=== PATIENT | female | born 1970 | race Two or more races ===

== ENCOUNTER 2024-09-04 08:34 | Outpatient (CLI) | payer OTHER | END 2024-09-04 08:35 | disposition home or self-care (01) | LOC: NUCLEAR 08:34 | PROVIDERS: ATTEND General Practice | DX: M89.9 Disorder of bone, unspecified (principal) ==

== ENCOUNTER 2024-10-17 07:34 | Outpatient (CLI) | payer OTHER | END 2024-10-17 07:35 | disposition home or self-care (01) | LOC: NUCLEAR 07:34 | PROVIDERS: ATTEND Internal Medicine Hematology & Oncology | DX: C79.51 Secondary malignant neoplasm of bone (principal); C80.1 Malignant (primary) neoplasm, unspecified ==

== ENCOUNTER 2024-10-22 07:15 | Outpatient (CLI) | payer OTHER | END 2024-10-22 07:19 | disposition home or self-care (01) | LOC: RAD 07:15 | PROVIDERS: ATTEND General Practice | DX: C90.00 Multiple myeloma not having achieved remission (principal); C79.51 Secondary malignant neoplasm of bone; M88.9 Osteitis deformans of unspecified bone ==

== ENCOUNTER 2024-11-18 09:15 | Outpatient (CLI) | payer OTHER | END 2024-11-18 09:17 | disposition home or self-care (01) | LOC: SONOGRAMA 09:15 | PROVIDERS: ATTEND Pathology Anatomic Pathology & Clinical Pathology | DX: C73 Malignant neoplasm of thyroid gland (principal) ==

== ENCOUNTER 2024-12-09 12:31 | Outpatient (CLI) | payer OTHER | END 2024-12-09 12:34 | disposition home or self-care (01) | LOC: SONOGRAMA 12:31 | PROVIDERS: ATTEND Surgery | DX: C73 Malignant neoplasm of thyroid gland (principal) ==

== ENCOUNTER 2024-12-18 11:45 | Inpatient (IN) | payer OTHER ==
[~2024-12-18] VITALS: Ht 165.1 cm; Wt 96.6 kg
[2024-12-18] MEDS ORDERED: GLIMEPIRIDE1 M1 PO (12:50)
[2024-12-18] MEDS ORDERED: NORVASC5 MG PO (12:50)
[2024-12-18] MEDS ORDERED: COZAAR50 MG PO (12:50)
[2024-12-18] MEDS ORDERED: SYNTHROID125 MCG PO (12:50)
[2024-12-18] MEDS ORDERED: ATARAX10 MG PO (12:51)
[2024-12-18 12:55] VITALS: BP 147/90
[2025-01-06] MEDS ORDERED: ONDANSETRON HCL 2 MG/ML VIAL IV PRN (10:00)
[2025-01-06] MEDS ORDERED: DEXAMETHASONE SODIUM PHOSPHATE 4 MG/ML VIAL ONE (10:00)
[2025-01-06] MEDS ORDERED: DEXTROSE 50 % IN WATER 0.5 G/ML VIAL IV PRN (10:00)
[2025-01-06] MEDS ORDERED: INSULIN LISPRO 1,000 UNIT/10 ML UNITS SUBCUTANEO PRN (10:00)
[2025-01-06] MEDS ORDERED: ENALAPRILAT DIHYDRATE 1.25 MG/ML VIAL IV PRN (10:00)
[2025-01-06] MEDS ORDERED: CEFAZOLIN SODIUM 1,000 MG VIAL ONE (10:01)
[2025-01-06] MEDS ORDERED: MORPHINE SULFATE 4 MG/ML VIAL IV ONE ×2 (12:40→13:10)
[2025-01-06 15:10] VITALS: BP 143/91; O2SAT 98
[2025-01-06] MEDS ORDERED: LIDOCAINE HCL 60 ML,MAG HYDROX/ALUMINUM HYD/SIMETH 60 ML,DIPHENHYDRAMINE HCL 150 MG MM SCH (17:00)
[2025-01-06] MEDS ORDERED: CALCITRIOL 0.5 MCG CAPSULE PO SCH (17:00)
[2025-01-06] MEDS ORDERED: ACETAMINOPHEN 500 MG GEL..CAP PO SCH (17:00)
[2025-01-06] MEDS ORDERED: CYCLOBENZAPRINE HCL 5 MG TABLET PO SCH (17:00)
[2025-01-06] MEDS ORDERED: TRAMADOL HCL 50 MG TABLET PO SCH (17:00)
[2025-01-06] MEDS ORDERED: PANTOPRAZOLE SODIUM 40 MG/VIAL VIAL IV PUSH SCH (21:00)
[2025-01-06] MEDS ORDERED: Calcium Carbonate 1 TAB TABLET PO SCH (21:00)
[2025-01-07] VITALS: BP 136/73; O2SAT 95
[2025-01-07] MEDS ORDERED: AMLODIPINE BESYLATE 5 MG TABLET PO SCH (09:00)
[2025-01-07] MEDS ORDERED: hydrOXYzine HCL 10 MG TABLET PO SCH (09:00)
[2025-01-07] MEDS ORDERED: LOSARTAN POTASSIUM 50 MG TABLET PO SCH (09:00)
[2025-01-07 09:47] VITALS: BP 95/64; O2SAT 98
[2025-01-07 16:00] VITALS: BP 135/89; O2SAT 95
[2025-01-08] MEDS ORDERED: LEVOTHYROXINE SODIUM 150 MCG TABLET PO SCH (06:00)
== END 2025-01-07 18:15 | disposition home or self-care (01) | DRG 627 ==
LOC: SURG 12-23 11:45 → O/R 01-06 07:08 → SURH 01-06 13:24
PROVIDERS: ADMIT Surgery; ATTEND Surgery
PROC: 0GBL0ZZ Excision of Right Superior Parathyroid Gland, Open Approach (ICD-10-PCS; 2025-01-06)
PROC: 0GTK0ZZ Resection of Thyroid Gland, Open Approach (ICD-10-PCS; principal; 2025-01-06 19:00)
DX: C73 Malignant neoplasm of thyroid gland (principal)

== ENCOUNTER → 2025-03-27 07:11 | Outpatient (CLI) | payer OTHER ==
[~2025-03-27 07:11] MED LIST: ATARAX10 MG PO; COZAAR50 MG PO; GLIMEPIRIDE1 M1 PO; NORVASC5 MG PO; SYNTHROID125 MCG PO
== END | disposition home or self-care (01) ==
LOC: NUCLEAR 06:00
PROVIDERS: ATTEND Internal Medicine Hematology & Oncology
DX: C79.51 Secondary malignant neoplasm of bone (principal)